=== PATIENT | male | born 2000 | race Hispanic/Latino ===

== ENCOUNTER 2022-03-08 18:33 | Inpatient (IN) | payer SELFPAY ==
[2022-03-08] MEDS ORDERED: Boostrix 0.5 ML (Tdap) VIAL (>/=7 yrs of age) ONE (19:13)
[2022-03-08] MEDS ORDERED: Lidocaine 1% PF 5 ML VIAL ONE (19:13)
[2022-03-08] MEDS ORDERED: Bupivacaine 0.25% 10 ML VIAL ONE (19:21)
[2022-03-08] MEDS ORDERED: Bupivacaine PF 0.5% 30 ML VIAL SC SCH (19:30)
[2022-03-08] MEDS ORDERED: CEFAZOLIN 1 GM VIAL ONE ×2 (20:36)
[2022-03-08] MEDS ORDERED: Gentamicin 80 MG/2 ML VIAL ONE (21:18)
[2022-03-08] MEDS ORDERED: Gentamicin Sulfate 100 MG in Premix Bag 1 BAG IVPB SCH (21:30)
[2022-03-08 21:54] LABS: SARS-CoV-2 NAA Rapid Test Not Detected (NotDetected)
[2022-03-08] MEDS ORDERED: Morphine 4 MG/ML VIAL SLOW IVP PRN (22:50)
[2022-03-08] MEDS ORDERED: Ondansetron PF 4 MG/2 ML Vial IVP PRN (23:00)
[2022-03-08] MEDS ORDERED: Ondansetron ODT 4 MG TAB SL PRN (23:00)
[2022-03-08] MEDS ORDERED: Sodium Chloride 0.9% 1,000 ML IV SCH (23:00)
[2022-03-08] MEDS ORDERED: Acetaminophen 325 MG TAB PO PRN (23:00)
[2022-03-09 01:35] VITALS: BMI 26.6
[2022-03-09] MEDS ORDERED: Gentamicin Sulfate 100 MG in Premix Bag 1 BAG IVPB SCH (06:00)
[2022-03-09 11:43] VITALS: TEMP 98.4
[2022-03-09] MEDS ORDERED: Bacitracin Zinc Ointment 30 gm TUBE ONE (16:31)
[2022-03-09] MEDS ORDERED: Neomycin-Polymyxin 1 ML AMP ONE (16:31)
[2022-03-09] MEDS ORDERED: Mineral Oil Sterile 10 ML VIAL ONE (16:31)
[2022-03-09] MEDS ORDERED: Bupivacaine PF 0.5% 30 ML VIAL ONE (16:31)
[2022-03-09] MEDS ORDERED: Midazolam HCl 2 mg/2 ml Vial ONE (18:07)
[2022-03-09] MEDS ORDERED: fentaNYL Citrate/PF 100 MCG/2 ML SYRINGE ONE (18:07)
[2022-03-09] MEDS ORDERED: Sodium Chloride 0.9% 100 ML ONE (19:02)
[2022-03-09] MEDS ORDERED: Dexamethasone 20 MG/5 ML VIAL ONE (19:17)
[2022-03-09] MEDS ORDERED: Lidocaine 1% MPF 2 ML VIAL ONE (19:17)
[2022-03-09] MEDS ORDERED: Ondansetron PF 4 MG/2 ML Vial ONE (19:17)
[2022-03-09] MEDS ORDERED: PROPOFOL 200 MG/20 ML VIAL ONE (19:17)
[2022-03-09] MEDS ORDERED: Ketorolac Tromethamine 30 MG/ML VIAL ONE (20:48)
[2022-03-09 22:27] VITALS: BP 119/72
== END 2022-03-09 22:20 | disposition home or self-care (01) | DRG 909 ==
LOC: ERS 18:33 → SURG A 21:18 → EDBD 21:18 → OBSVTOIN 03-09 17:08
PROVIDERS: ADMIT Orthopaedic Surgery Hand Surgery; ATTEND Orthopaedic Surgery Hand Surgery
PROC: 0PBV0ZZ Excision of Left Finger Phalanx, Open Approach (ICD-10-PCS; principal; 2022-03-09)
PROC: 0HDQXZZ Extraction of Finger Nail, External Approach (ICD-10-PCS; 2022-03-09)
DX: S68.522A Partial traumatic transphalangeal amputation of left thumb, initial encounter (principal); Z20.822 Contact with and (suspected) exposure to COVID-19; W31.2XXA Contact with powered woodworking and forming machines, initial encounter
CPT/HCPCS: 64450; 76000; 90471; 90715; 96365; 96367; 96375; 96376; G0378; J0690; J1100; J1580; J1885; J2250; J2270; J2405; J2704; J3490; J7050; S0020; U0002